=== PATIENT | male | born 1965 | race Caucasian/White ===

== ENCOUNTER 2020-02-02 08:00 | Day surgery (SDC) | payer BC ==
[~2020-02-02] VITALS: Ht 185.4 cm; Wt 185.0 kg
[~2020-02-02 08:00] MED LIST: AMOXICILLIN500 MG PO; ANAPROX DS550 MG PO; AZITHROMYCIN250 MG PO; CELEXA40 MG PO; CLINDAMYCIN HC300 MG PO; FLOMAX0.4 MG PO; HYDROCODON-ACE1 EAC8 PO; MOTRIN800 MG PO; NEURONTIN300 MG PO; NORCO 10-325 T1 EACH PO; PROVENTIL HFA6.7 GM INH; SUPHEDRIN 12-H120 MG PO; TRAMADOL HCL50 MG PO; VITAMIN D250000 UNIT PO
--- NOTE | 2020-02-02 10:26 | NUR ---
02/02/20 1026 Sheets,[place] 1019 PT ARRIVED TO PACU ON 10L VIA MASK, VSS. PT TALKING TO RN AND RESP EVEN AND UNLABORED. 1025 O2 REMOVED PT ENCOURAGED TO PASS GAS.
--- NOTE | 2020-02-02 14:12 | OR ---
[facility] [address] [place], [place] [address] Signed DATE OF OPERATION: 02/02/2020 SURGEON: Maurice Napier MD PREOPERATIVE DIAGNOSES: 1. Screening. 2. Body mass index (50). POSTOPERATIVE DIAGNOSES: 1. 5 mm polyp at 30 cm. 2. 4 mm polyps x5 at 15 cm/rectum. 3. Minimal to moderate sigmoid diverticulosis. PROCEDURE: Colonoscopy with hot biopsy. ESTIMATED BLOOD LOSS: None. INDICATIONS: Gerald is a 55-year-old gentleman, asked to see me for his initial screening colonoscopy. He said 2 guaiac cards have been negative. His has been through colonoscopy, so they are somewhat familiar with this process. He said he has no lower GI complaints. There is no family history of colon cancer or polyps. In the office, I gave him a pamphlet on colonoscopy. We looked at that together along with the risks including, but not limited to gas bloating, crampy abdominal pain, bleeding, perforation requiring surgery, and missed diagnosis. We also discussed the need for IV conscious sedation. Given his body habitus, we definitely needed an anesthesia provider to help with increased monitoring and sedation with propofol. He had expressed understanding and wished to proceed. DESCRIPTION OF PROCEDURE: Gerald was taken into our endoscopy suite and placed in the left lateral decubitus position. He was given IV sedation with propofol per our nurse gin feeder. A digital rectal exam was performed and this was unremarkable. The adult colonoscope was introduced and advanced under direct visualization of camera. It took two people to provide abdominal compression and some additional propofol in order to get all the way around the hepatic flexure and down into the cecum itself. His prep fortunately was good. We could easily see the appendiceal orifice and the ileocecal valve. The scope was slowly withdrawn. We did find a polyp at 30 cm and several small polyps in his Electronically Signed By: MAURICE NAPIER MD 02/02/20 1412 PATIENT NAME: GERALD MERCEDES OPERATIVE REPORT DATE OF : 61 REPORT #: [id number] PHYSICIAN: MAURICE NAPIER MD PCP: CEDRICK ESCOBAR PA-C REPORT IS CONFIDENTIAL AND NOT TO BE RELEASED WITHOUT AUTHORIZATION [facility] [address] [place] [id number] Signed upper rectum, all easily removed with the help of hot biopsy forceps. He also has sigmoid diverticulosis. They were moderate in size, minimal to moderate in number, and scattered about. The scope was then retroflexed. We did not see any additional pathology above the anal canal. After this, the gas was suctioned out and the colonoscope removed. Gerald tolerated the procedure quite well. RECOMMENDATIONS: I will see Gerald back in my office in 7 to 14 days to review his results. Maurice Napier MD ALB/MODL /[id number] cc: HUNTER Jimenez MD Copies: CEDRICK ESCOBAR PA-C, ANDREW L MD ~ Electronically Signed By: MAURICE NAPIER MD 02/02/20 1412 PATIENT NAME: GERALD MERCEDES OPERATIVE REPORT DATE OF : 61 REPORT #: [id number] PHYSICIAN: MAURICE NAPIER MD PCP: CEDRICK ESCOBAR PA-C REPORT IS CONFIDENTIAL AND NOT TO BE RELEASED WITHOUT AUTHORIZATION
--- NOTE | 2020-02-07 09:43 | PATH ---
[facility] [address] [place], [place] [address] Signed SPECIMEN(S): A COLON POLYP AT 15 CM SPECIMEN(S): B COLON POLYP AT 30 CM SPECIMEN SOURCE: A. COLON POLYP AT 15 CM B. COLON POLYP AT 30 CM CLINICAL HISTORY: BMI 55, colon screening. MICROSCOPIC DESCRIPTION: Histologic sections of all submitted blocks are examined by light microscopy. These findings, together with the gross examination, support the pathologic diagnosis. FINAL PATHOLOGIC DIAGNOSIS: A. Colon, 15 cm, polypectomy: - Hyperplastic polyps (multiple). - One colonic fragment demonstrates marked cautery artifact, but also contains a benign intramucosal lymphoid nodule. - There is no evidence of dysplasia or malignancy. B. Colon, 30 cm, polypectomy: - Benign colonic mucosa with prominent intramucosal lymphoid aggregate. - No evidence of neoplasia. K:[facility]:C2NR GROSS DESCRIPTION: Two specimens are received in two containers, labeled "Gerald Mercedes." A. The specimen, labeled "Mark Gerald, #1," and designated on the requisition "colon polyp at 15 cm," is received in formalin and consists of seven roberts soft tissue fragment(s) that measure 0.3-0.5 cm in greatest dimension. The specimen is entirely submitted in cassette (A1). B. The specimen, labeled "Gerald Mercedes, #2," and designated on the requisition "colon polyp at 30 cm," is received in formalin and consists of one roberts soft tissue fragment that measures 0.4 cm in greatest dimension. The specimen is entirely submitted in cassette (B1). FB (under the direct supervision of a pathologist) The Gross Description was prepared using a voice recognition system. The report was reviewed for accuracy; however, sound-alike word errors, addition and/or deletions may occur. If there is any question about this report, please contact Client Services. PATIENT NAME: GERALD MERCEDES PATHOLOGY DATE OF : 61 REPORT #: [id number] PHYSICIAN: CAMERON LOCKE PCP: CEDRICK ESCOBAR PA-C REPORT IS CONFIDENTIAL AND NOT TO BE RELEASED WITHOUT AUTHORIZATION [facility] [address] [place] [address] [place], [place] [address] Signed PERFORMING LABORATORY: The technical component was performed by [facility], [address] [place] [address] (Wheat Farmer: Maritza Wilson MD; CLIA# [id number]). Professional interpretation was performed by [facility], [address] [place] [address] (Wheat Farmer: Maritza Wilson MD; CLIA# [id number]). Diagnostician: Gopal Fountain MD Pathologist Electronically Signed 02/07/2020 Copies: ~ PATIENT NAME: GERALD MERCEDES PATHOLOGY DATE OF : 61 REPORT #: [id number] PHYSICIAN: CAMERON PATHOLOGY PCP: CEDRICK ESCOBAR PA-C REPORT IS CONFIDENTIAL AND NOT TO BE RELEASED WITHOUT AUTHORIZATION
== END 2020-02-02 10:49 | disposition home or self-care (01) ==
LOC: DS 08:00 → OPS 08:00 → DS 08:30 → OPS 08:30
PROVIDERS: ATTEND Colon & Rectal Surgery
PROC: 0DBE8ZX Excision of Large Intestine, Via Natural or Artificial Opening Endoscopic, Diagnostic (ICD-10-PCS; principal; 2020-02-02 08:30)
DX: Z12.11 Encounter for screening for malignant neoplasm of colon (principal); K63.5 Polyp of colon; K57.30 Diverticulosis of large intestine without perforation or abscess without bleeding; E66.01 Morbid (severe) obesity due to excess calories; F32.9 Major depressive disorder, single episode, unspecified; M17.0 Bilateral primary osteoarthritis of knee; E55.9 Vitamin D deficiency, unspecified; Z98.84 Bariatric surgery status; Z79.899 Other long term (current) drug therapy; Z68.43 Body mass index [BMI] 50.0-59.9, adult; G47.33 Obstructive sleep apnea (adult) (pediatric)
CPT/HCPCS: J2704; J7121

== ENCOUNTER 2021-02-13 08:13 | Inpatient (IN) | payer BC ==
[~2021-02-13] VITALS: Ht 185.4 cm; Wt 184.6 kg
--- NOTE | ~2021-02-13 | HP ---
[facility] [address] [place], [place] [address] Draft ADMISSION DATE: 02/13/2021 REASON FOR ADMISSION: Acute calculous cholecystitis. HISTORY OF PRESENT ILLNESS: This morbidly obese, 184.61 kg, BMI 53.7, white man presented to [facility] with complaints of severe epigastric pain. He was referred to the emergency room where he was evaluated by Dr. Lopez. Evaluation initially was concerning for possible cardiac ischemia. However, further evaluation shows him to have a normal troponin level and EKG unchanged from recent cardiac evaluation and pain dominantly in the epigastric and subcostal area. A gallbladder ultrasound was performed which showed some thickened gallbladder wall, some pericholecystic inflammation and gallstones. He is considered most likely to have acute calculous cholecystitis. Clemente sign was positive on that study as well it is noted. The patient has been preparing for a hip replacement operation at [facility] and has undergone a recent stress test as well as a transthoracic echocardiogram (February 06, 2021). He was noted on EKG to have a right bundle-branch block. He has mild left ventricular size, increase in ejection fraction considered 60% with normal left ventricular systolic function and without regional wall motion abnormalities. He has a mildly enlarged left atrium and right atrium and mild pulmonary hypertension (37.1 mmHg). His stress test that was performed at [facility] on February 03, 2021 under the direction of Dr. Alvarado was reviewed showing that pharmacological stress testing showed no symptoms during the stress test. Blood pressure demonstrating a hypertensive response and heart rate demonstrating normal response to stress. Recovery heart rate was normal. He had rare PACs and no dysrhythmias during the test. PAST MEDICAL HISTORY: Notable for gastric bypass operation in 2005. He had no known complications of operation at that time. He additionally has ongoing obesity and a history of nephrolithiasis. SOCIAL HISTORY: He is . He works for [employer]. He lives in [place]. He has no children. HOME MEDICATIONS: Include albuterol, Proventil inhaler as needed for shortness of breath. Additional medicines include Buspirone 5 mg p.o. daily, testosterone 200 mcg IM and citalopram PATIENT NAME: GERALD MERCEDES HISTORY AND PHYSICAL DATE OF : 61 REPORT #: [id number] PHYSICIAN: TRISTAN ABRAHAM MD PCP: CEDRICK ESCOBAR PA-C REPORT IS CONFIDENTIAL AND NOT TO BE RELEASED WITHOUT AUTHORIZATION [facility] [address] [place], [place] [address] Draft (Celexa 40 mg daily). REVIEW OF SYSTEMS: He denies any actual precordial chest pain or left arm pain under my questioning. His pain is severe and in the right subcostal and epigastric area. PHYSICAL EXAMINATION: GENERAL: He is accompanied by his . VITAL SIGNS: Presentation vital signs at 8:00 a.m. showed temperature of 97, pulse 69, respirations 13, blood pressure 154/101, pulse oximetry 97%. NECK: Trachea is midline. CHEST: Shows shallow breathing. He is not diaphoretic. ABDOMEN: Quite markedly obese. There is significant tenderness and peritonitis in the epigastric and right subcostal areas. I detect no mass. EXTREMITIES: Show no clubbing, cyanosis, or edema. EKG does confirm right bundle-branch block. LABORATORY STUDIES: Show a white count of 5.3, hematocrit of 41.8, platelets 336,000. Chem profile normal electrolytes, creatinine 0.96. Liver enzymes are normal. Troponin highly sensitive was 11.9. Lipase is 136. Imaging study was reviewed personally and report also reviewed confirming at least one large shadowing gallstone and a somewhat distended gallbladder. The report is reviewed confirming a 17 mm stone in the neck with hydropic gallbladder. Plain chest x-ray shows clear lung klein bilaterally. Official report shows no acute pathology. ASSESSMENT: The patient clinically and radiographically has evidence of acute calculous cholecystitis. We are certainly mindful of his extreme obesity and the hazards that anesthesia and surgery may pose, however, given his significant findings, I do believe cholecystectomy is appropriate at this time. Discussed with the patient and his the risks of bleeding, infection, bile duct injury, need for open procedure, and other unforeseen complications. Understanding this, they wished to proceed. Given his recent stress test and transesophageal echocardiogram, his cardiac situation is somewhat better characterized and does appear to have well-preserved ventricular function despite a noted right bundle-branch block. PATIENT NAME: GERALD MERCEDES HISTORY AND PHYSICAL DATE OF : 61 REPORT #: [id number] PHYSICIAN: TRISTAN ABRAHAM MD PCP: CEDRICK ESCOBAR PA-C REPORT IS CONFIDENTIAL AND NOT TO BE RELEASED WITHOUT AUTHORIZATION [facility] [address] [place], [place] [address] Draft He is to be started promptly on Ancef 3 g IV and additional fluids administered. We will plan for a prompt cholecystectomy today in hopes of relieving his suffering and definitively solving this problem. MD WHITNEY Cabezas/SOCORRO /[id number] cc: HUNTER Jimenez Dr[address] [facility] Copies: CEDRICK ESCOBAR PA-C ~ PATIENT NAME: GERALD MERCEDES HISTORY AND PHYSICAL DATE OF : 61 REPORT #: [id number] PHYSICIAN: TRISTAN ABRAHAM MD PCP: CEDRICK ESCOBAR PA-C REPORT IS CONFIDENTIAL AND NOT TO BE RELEASED WITHOUT AUTHORIZATION
--- NOTE | ~2021-02-13 | OR ---
[facility] [address], [place] [address] Draft DATE OF OPERATION: 02/13/2021 SURGEON: Tristan Abraham MD PREOPERATIVE DIAGNOSES: 1. Acute calculous cholecystitis, hydropic gallbladder, single gallstone 17 mm. 2. Morbid obesity (greater than 400 pounds). 3. History of gastric bypass, 2002. POSTOPERATIVE DIAGNOSES: 1. Perforated ulcer, gastrojejunal anastomosis with generalized peritonitis. 2. Hydropic gallbladder with stone. PROCEDURES: 1. Laparoscopy with attempted closure and patch (Ruben patch) perforated ulcer, conversion to open laparotomy and Ruben patch repair of perforated gastrojejunal anastomotic ulcer, prolonged complicated difficult. 2. Open cholecystectomy without cholangiogram and placement of drain. ANESTHESIA: General endotracheal, Shira Henry, TENT FINISHER, and subcostal bilateral TAP blocks. INDICATION: This 56-year-old white man presented to the emergency room with severe epigastric pain. Initially thought possibly a cardiac problem. He is morbidly obese, in greater than 400 pounds, so he did undergo gastric bypass operation in 2002. He is known to have chronic abdominal pain. Notably, he has undergone a stress test in the past two weeks in preparation for hip surgery to be done at [facility] as well as a transesophageal echo showing preservation of left ventricular function greater than 60%. A gallbladder ultrasound was performed, which showed a hydropic gallbladder and a single gallstone of 17 mm. A preoperative chest x-ray showed no sign of infiltrate. Noted (but not documented by me or the radiologist, was a very small sliver of air in the right medial hemidiaphragm area, which was of uncertain significance. The patient is prepared for laparoscopic cholecystectomy, possible open procedure depending on finding, as well as other indicated procedures as necessary. The risks of bleeding, infection, bile duct injury, need for open procedure and so forth were reviewed with the patient and his . They understand and wished to proceed. FINDINGS: PATIENT NAME: GERALD MERCEDES OPERATIVE REPORT DATE OF : 61 REPORT #: [id number] PHYSICIAN: TRISTAN ABRAHAM MD PCP: CEDRICK ESCOBAR PA-C REPORT IS CONFIDENTIAL AND NOT TO BE RELEASED WITHOUT AUTHORIZATION [facility] [address], [place] [address] Draft Upon entry to the abdomen through the infraumbilical incision was egress of free air. Turbid fluid was noted as well. Quite clearly, the problem would not have been acute cholecystitis and upon reflection was concordant to his more than average severe abdominal pain related to presumed cholecystitis. With laparoscopic evaluation, there was no evidence of perforated duodenal ulcer, but there was a distended hydropic gallbladder. Examination to the left of the falciform ligament demonstrated a fibrinous purulent exudate near the lateral aspect of the left lateral segment of the liver and with careful manipulation, an obvious perforation in what would be the gastrojejunal anastomotic limb. Attempts to repair this laparoscopically were unsuccessful and conversion open operation was undertaken, allowing for complete repair with a Ruben patch. Additionally, open cholecystectomy without cholangiogram was performed. The patient has been fluid resuscitated in the emergency room and given Ancef 3 g IV preoperatively. He has been given a general endotracheal anesthetic. A Coelho catheter was placed. The very large abdominal area was clipped and prepared with a chlorhexidine solution and draped sterilely. An infraumbilical incision was made and using an open Robe cannula technique, the abdomen was entered. Upon entry to the abdomen, egress of free air was noted as well as turbid somewhat bile-stained fluid. Of course, this portended the finding in fact of perforated viscus of some sort. I thought likely it would be a perforated duodenal ulcer. Three additional trocars were placed in usual configuration in the subxiphoid, right midclavicular, and right anterior axillary line. Examination in the upper abdomen showed turbid infected fluid over the dome of the liver quite clearly not consistent with acute cholecystitis. The gallbladder was very hydropic and distended and inflamed. Attempts in identification of the bulbar duodenum were quite unsuccessful due to the distention of the gallbladder and omental adhesions. On that basis, the gallbladder was decompressed of its relatively normal-appearing bilious fluid. The puncture site was secured with an Endoloop and the gallbladder elevated cephalad. Due to his massive intra-abdominal obesity and so forth, a good visualization of the duodenum was difficult to obtain. Additional trocars showing no sign of inflammatory fluid in the region of the pylorus or area of the duodenum. Examination in the lower abdomen was undertaken showing inflammatory fluid there. Two right lower quadrant 5 mm ports were placed to allow for manipulation of the cecum to assess the appendix. The teniae were followed to the base of the appendix, but the appendix was not visible and was either retroperitoneal or perhaps previously excised ; in any case, there was no evidence of retroperitoneal process and this would be an unlikely source of the inflammatory fluid and free air. Examination was then undertaken in the upper abdomen once again. Manipulation of the PATIENT NAME: GERALD MERCEDES OPERATIVE REPORT DATE OF : 61 REPORT #: [id number] PHYSICIAN: TRISTAN ABRAHAM MD PCP: CEDRICK ESCOBAR PA-C REPORT IS CONFIDENTIAL AND NOT TO BE RELEASED WITHOUT AUTHORIZATION [facility] [address], [place] [address] Draft trocars that was to the right side of the falciform ligament were withdrawn and reapplied to the left side of the falciform and in the left upper quadrant quite clearly noted was inflammatory peel and rind in the tip of the left lateral segment of the liver. Two additional trocars were placed in the left upper quadrant allowing for focus to this area. Quite obviously there was found to be a perforated ulcer. This appeared to be along the staple line of the presumed gastrojejunal anastomosis. The area was freed of inflammatory fluid and fibrinous debris using blunt electrocautery dissection the left lateral segment of liver from the process. The left lateral segment of liver was chronically inflamed enough that it could be all gently grasped and elevated. Attempts were made to pass laparoscopically, an 0 silk suture through the perforation to provide closure and/or a Ruben patch for closure, but the tissue was so friable and soft that the sutures tore through very easily and quite obviously this would not be a tenable approach. On that basis, given that still the need for a cholecystectomy, open procedure was deemed most appropriate. The trocars removed under direct visualization showing no sign of bleeding. The infraumbilical fascial incision was reapproximated with running rather interrupted 0 PDS suture. A midline incision was made extending from the xiphoid to the umbilicus, but not through it. The thick abdominal wall pannus was retracted and examination of the abdomen showed clear evidence of the perforation of the gastrojejunal anastomosis. The ulcer was larger than I had anticipated and quite unlikely had been extended by manipulation simply was large and high-riding as might be expected. An upper hand retractor was affixed to the table, was found to be too short and inappropriate for his body habitus. On that basis, a Bookwalter retractor with recruiting associate was obtained providing quite good exposure to the upper subhepatic space on the left side. The area of the ulcer was defined more fully and was certainly greater than a centimeter in size more likely two. Marked inflammation of the surrounding bowel was noted. An orogastric tube was manipulated into position, but was not palpated. This was anticipating leak testing after repair. The size of the suture and the friability of the tissue was such that simple closure would be an adequate. On that basis, a segment of omentum was freed from the stomach remnant, which was generous and well-vascularized. Interrupted 0 silk sutures were on each side of the perforation in a vertical position and the omental patch placed within the defect quite directly securing the sutures over the omentum into the defect itself. PATIENT NAME: GERALD MERCEDES OPERATIVE REPORT DATE OF : 61 REPORT #: [id number] PHYSICIAN: TRISTAN ABRAHAM MD PCP: CEDRICK ESCOBAR PA-C REPORT IS CONFIDENTIAL AND NOT TO BE RELEASED WITHOUT AUTHORIZATION [address] [address] Draft the mixer crane operator was then able to insufflate the area with air with the area in question submerged beneath saline. Several such trials were undertaken showing no sign of leakage. Through a left-sided 5 mm trocar site, a 7 mm flat J Luis drain was placed into the area of Ruben patch and irrigation undertaken more fully. Mindful of the gallbladder was hydropic and did have a stone, cholecystectomy was deemed appropriate as well. The Bookwalter retractor was manipulated to a different position, ultimately providing good exposure to the gallbladder itself. The gallbladder was still quite distended. A 2-0 silk suture was passed in a pursestring configuration. The gallbladder entered with electrocautery and much of the bile from the gallbladder decompressed more fully. The puncture site was secured with a silk suture. A ring clamp was applied to the gallbladder. The gallbladder was dissected free in a top-down position down to the infundibulum. As it turns out, the cystic duct was diminutive, quite small, indeed, but was secured with three clips. The gallbladder was passed for pathology and showed some neoplasm of mucosa, but 17 mm stone as previously noted. Irrigation was undertaken in subhepatic space. There was no bile leak, bleeding, or other problems. The right-sided 5 mm trocar site, 7 mm flat drain was placed in the subhepatic space as well. The entire abdominal contents were then copiously irrigated with saline solution, suctioning free the turbid fluid from the perforated viscus. There was no evidence of solid matter within the peritoneal cavity. The omentum was replaced of the abdominal contents and plan made for closure. The midline fascia was reapproximated with running bidirectional #1 PDS suture with interrupted #1 PDS suture for internal retention sutures. Five of six such sutures were placed. The subcutaneous tissue, the umbilical wound, and the epigastric wound was irrigated with saline solution and skin closed in all wounds with running 3-0 Vicryl or interrupted 3-0 Vicryl as appropriate. Steri-Strips were applied as was an Acticoat dressing to the midline incision site. The patient was ultimately given a subcostal TAP blocks with ultrasound control by the mixer crane operator for postoperative analgesic benefit. He was ultimately taken to recovery room in good condition having suffered no known complications. Sponge, needle, and instrument counts were reported as correct x3. Blood losswas estimated less than 50 mL in aggregate. The operation was prolonged, complicated, and difficult lasting approximately 4 hours in aggregate, but was accomplished safely with good clinical benefit. PATIENT NAME: GERALD MERCEDES DAVID OPERATIVE REPORT DATE OF : 61 REPORT #: [id number] PHYSICIAN: TRISTAN ABRAHAM MD PCP: CEDRICK ESCOBAR PA-C REPORT IS CONFIDENTIAL AND NOT TO BE RELEASED WITHOUT AUTHORIZATION [address] [address] Draft MD WHITNEY Cabezas/SRINIVASL /[id number] cc: HUNTER Jimenez MD John Elliott, MD Copies: CEDRICK ESCOBAR PA-C, CYNTHIA SUE MD ~ PATIENT NAME: GERALD MERCEDES OPERATIVE REPORT DATE OF : 61 REPORT #: [id number] PHYSICIAN: TRISTAN ABRAHAM MD PCP: CEDRICK ESCOBAR PA-C REPORT IS CONFIDENTIAL AND NOT TO BE RELEASED WITHOUT AUTHORIZATION
--- NOTE | ~2021-02-13 | DS ---
[facility] [address], [place] [address] Draft ADMISSION DATE: 02/13/2021 DISCHARGE DATE: 02/19/2021 REASON FOR ADMISSION: This morbidly obese 184.61 kg, BMI 53.7 white man presented to [facility] with severe epigastric pain. He is referred to the emergency room where he was evaluated by Dr. Lopez. His initial concern was that of cardiac disease, but there was no evidence of ischemic disease and a recent cardiac evaluation including a stress thallium test and others showed no evidence of ischemic change. A gallbladder ultrasound was performed which showed thickened gallbladder wall, some pericholecystic inflammation and gallstones. He is considered most likely to have calculous cholecystitis. The patient has been preparing for hip replacement surgery at [facility] in March. He is noted to have a right bundle-branch block, mild left ventricular increase in size and ejection fraction of 60%. The patient has had a very diseased knees anticipating orthopedic operation as described; he has been taking Motrin at least 800 mg b.i.d. as well as aspirin mg daily for control of the pain. Pertinent. PERTINENT PHYSICAL EXAMINATION: GENERAL: On admission showed a very obese white man. VITAL SIGNS: Blood pressure 154/100, pulse oximetry 97% on room air, pulse 69, temperature 97, respirations 13. ABDOMEN: Showed significant tenderness and peritonitis in the epigastric and right subcostal areas. There was no mass. LABORATORY STUDIES: Showed a white count of only 5.9, hematocrit 41.8, platelets 336,000. Troponin highly sensitive 11.9. Lipase 136. Gallbladder ultrasound showed a distended hydropic gallbladder with a large shadowing stone. HOSPITAL COURSE: The patient was given intravenous fluid resuscitation, IV antibiotic Ancef, and plans made for proceeding directly to cholecystectomy given the severity of his symptoms, tenderness and so. On that day on February 13, 2021 he underwent laparoscopy where he was immediately noted to have egress of free air from the abdominal cavity. Laparoscopic evaluation showed generalized peritonitis and peritoneal contamination likely from perforated viscus. The gallbladder was clearly distended and inflamed as well. Decompression of the PATIENT NAME: GERALD MERCEDES DISCHARGE SUMMARY DATE OF : 61 REPORT #: [id number] PHYSICIAN: TRISTAN ABRAHAM MD PCP: CEDRICK ESCOBAR PA-C REPORT IS CONFIDENTIAL AND NOT TO BE RELEASED WITHOUT AUTHORIZATION [facility] [address], [place] [address] Draft gallbladder allowed for good visualization of the duodenum, which showed no evidence of perforated duodenal ulcer. Examination to the left of the falciform ligament, however, did show inflammatory changes and a gummy area of tissue near the left lateral segment of liver clearly related to previous gastrojejunal bypass and an obvious perforated ulcer. Attempts at patch closure with a Ruben patch of the perforate also were unsuccessful and on that basis, he was converted to an upper midline laparotomy incision. Repair of the perforated ulcer was undertaken with a Ruben patch (classic type) and placement of drain. He also underwent concurrent cholecystectomy for incidentally noted acute calculous cholecystitis. Postoperatively, he is maintained with a nasogastric tube and a drain near the repaired area as well as the subcostal space. He had marked improvement of his peritoneal findings. He is maintained without nonsteroidal medication for pain control. His progress thereafter was one of progressive improvement. He was maintained with orally administered liquid sucralfate as well as intravenous PPI medication, Protonix and intravenous Pepcid. The nasogastric gastric tube was removed as it was showing only scant drainage and neither the drain showed ongoing leak of inflammatory fluid. He was given some clear liquids in minimal amounts for comfort and ultimately underwent an upper GI on February 17, 2021 which showed no evidence of persistent leakage in the region of prior gastrojejunal anastomosis. He was then begun on a full liquid diet which was promptly advanced to a solid diet without problem. He was transitioned to oral medications fully and ultimately the drains were removed as they showed no worrisome discharge and he was mobilized out of bed more fully. Upon retrospect assessment, he had been taking Motrin 800 mg at least twice a day as well as minidose aspirin on a daily basis (related to his testosterone replacement therapy). He is discharged home in good condition having come through operation, which included repair of a perforated gastric ulcer at the gastrojejunal anastomosis with prior history of Chase-en-Y gastric bypass as well as cholecystectomy. FOLLOW-UP PLANS: He will call me in a week to schedule outpatient followup appointment in four weeks or so. He ultimately will undergo upper endoscopy to assess for complete healing. He has not been a smoker nor he endeavor to start such a habit and will avoid nonsteroidal medications entirely going forward for the time being. I have encouraged him to follow through with orthopedic surgery planned on his knees in March as I think he will be certainly capable of tolerating that at that point. PATIENT NAME: GERALD MERCEDES DISCHARGE SUMMARY DATE OF : 61 REPORT #: [id number] PHYSICIAN: TRISTAN ABRAHAM MD PCP: CEDRICK ESCOBAR PA-C REPORT IS CONFIDENTIAL AND NOT TO BE RELEASED WITHOUT AUTHORIZATION [address] [place], [place] [address] Draft He is to lift no more than 20 pounds for the next 4 weeks and is to ambulate on a daily basis. DISCHARGE MEDICATIONS: Will include: 1. Oxycodone/Tylenol 7.5/325 1-2 p.o. q.6 hours as needed for pain #10, no refill. 2. Plain Tylenol 500 mg two tablets p.o. q.6 hours as needed for pain, #60. 3. Sucralfate 1 g dissolved in water or hold depending on the patient preference q.i.d. on empty stomach. 4. Pantoprazole 40 mg p.o. b.i.d. #60, refill 6. 5. He will continue his usual medications of Celexa 1 tab p.o. daily, albuterol inhaler 6.7 g inhaler 1-2 puffs q.6 as needed for shortness of breath. 6. Buspirone 5 mg p.o. b.i.d. and testosterone mL IM q.month. DISCHARGE DIAGNOSES: 1. Generalized peritonitis secondary to perforated gastric ulcer at site of prior gastrojejunal anastomosis (history of gastric bypass 2002). 2. Concurrent acute calculous cholecystitis. 3. Status post laparoscopy with conversion to open operation to include Ruben patch repair of perforated gastrojejunal anastomotic ulcer and open cholecystectomy without cholangiogram. 4. Morbid obesity. BMI greater than 53. 5. History of Chase-en-Y gastric bypass in 2002. 6. Hypogonadism (treated with testosterone). 7. Severe degenerative disease of knees, anticipating orthopedic surgery; current and precipitating medications of Motrin. 8. Anxiety. Tristan Estevan, MD JM/MODL /[id number] cc: Tina Romero MD PATIENT NAME: GERALD MERCEDES DISCHARGE SUMMARY DATE OF : 61 REPORT #: [id number] PHYSICIAN: TRISTAN ABRAHAM MD PCP: CEDRICK ESCOBAR PA-C REPORT IS CONFIDENTIAL AND NOT TO BE RELEASED WITHOUT AUTHORIZATION [address] [address] [facility] Dr. Lopez Copies: TINA ROMERO MD ~ PATIENT NAME: DARENGERALD DAVID DISCHARGE SUMMARY DATE OF : 61 REPORT #: [id number] PHYSICIAN: TRISTAN ABRAHAM MD PCP: CEDRICK ESCOBAR PA-C REPORT IS CONFIDENTIAL AND NOT TO BE RELEASED WITHOUT AUTHORIZATION
[2021-02-13] MEDS ORDERED: BUSPIRONE HCL5 MG PO (08:31)
[2021-02-13] MEDS ORDERED: TESTOSTERO200 MG/1 M IM (08:32)
--- NOTE | 2021-02-13 11:36 | NUR ---
REPORT RECEIVED FROM GERA JUNIOR, WHO STATES PT IS SCHEDULED TO GO TO OR PRIOR TO ARIVAL TO MED/SURG. AWAITING PTS ARRIVAL TO MED/SURG.
[2021-02-13] MEDS ORDERED: GABAPENTIN300 MG PO (12:15)
--- NOTE | 2021-02-13 14:29 | NUR ---
REPORT GIVEN TO GERA PETIT WHO WILL BE ASSUMING CARE OF PT. AWAITING PTS ARRIVAL TO MED/SURG.
--- NOTE | 2021-02-13 16:11 | NUR ---
02/13/21 1611 Jayne Dela Cruz 1605- PT ARRIVES TO PACU EASILY AROUSABLE TO VOICE. PT REPORTS NO PAIN OR NAUSEA. RESP EVEN AND UNLABORED. OXYGEN SAT MID TO HIGH 90'S ON 6L VIA MASK. 1608- DR. ABRAHAM AT THE BEDSIDE TO TALK WITH THE PT.
--- NOTE | 2021-02-13 17:50 | NUR ---
REPORT RECEIVED AND PT. ARRIVED VIA STRETCHER ON 2L OXYMASK. MIDLINE DRESSING HAS SMALL AMOUNT OF RED SHADOWING BUT IS INTACT. YAMILET DRAINS PATENT. RLQ LAP SITE DRESSINGS HAVE A SMALL AMOUNT OF SHADOWING. PT REPORTS 8/10 LEFT SHOULDER PAIN THAT IS CHRONIC. MORPHINE ADMIN AND HEAT PACK. HE IS ALERT AND ORIENTED TO ALL. IV SITE WNL AND FLUSHES WELL. NG TUBE ATTACHED TO LOW INT. WALL SUCTION AND DRAINING RED/BROWN FLUID. DISCUSSED SAFETY, MEDS AND NG TUBE. PT. LEFT RESTING ON CPOX, ALARM ON AND CALL LIGHT IN REACH.
--- NOTE | 2021-02-13 19:25 | NUR ---
SHIFT REPORT RECEIVED FROM DAYSHIFT RN MARISABEL AT BEDSIDE. pt DROWSY, BUT AWOKE TO VOICE. 4L OXYMASK IN PLACE, SPO2 LOW 90'S, CPOX IN PLACE. HR WNL. LAP SITES X2 AND MIDLINE DRESSING WNL WITH ABD BINDER IN PLACE. NG TUBE TO LOW INT. WALL SUCTION, OUTPUT BROWN IN COLOR. IV FLUIDS AND IV ABX INFUSING ORDERED, IV SITE WNL. SCD'S IN PLACE. pt DENIES NEEDS, CALL LIGHT IN REACH.
--- NOTE | 2021-02-13 20:30 | NUR ---
POST OP VS REMAIN STABLE. pt RESTING IN BED, RR EVEN AND UNLABORED. NO DISTRESS NOTED. pt DENIES NEEDS OR CONCERNS. CALL LIGHT IN REACH.
--- NOTE | 2021-02-13 21:30 | NUR ---
IN TO GET VITALS, I&Os, HANSEN CARE DONE, RN AWARE OF PTs TEMP, RM TEMP TURNED DOWN, NO FURTHER NEEDS
--- NOTE | 2021-02-13 22:45 | NUR ---
ASSESSMENT COMPLETE, pt INITIALLY REPORTS PAIN IS TOLERABLE, RATES APPROX 5/10. DENEIS NAUSEA. NG TUBE TO LIWS, NOW CLAMPED TO TAKE ORAL MEDS (SEE EMAR). NG TUBE PATENT, NO CLOGS OR ISSUES NOTED. OUTPUT RED/RUST, BROWN IN COLOR. MOUTH SWABS REMAIN AT BEDSIDE FOR COMFORT. LAP SITES X2 WNL, UNCHANGED. 20MLS SEROSANGUINEOUS OUTPUT NOTED TO BOTH YAMILET DRAIN #1 AND YAMILET DRAIN #2. pt STOOD AND EDGE OF BED AND TOOK COUPLE STEPS, DENIED DIZZINESS, STEADY ON FEET. ABD BINDER REMAINS IN PLACE. SOME NEW SHADOWING NOTED TO MIDLINE DRESSING, SHADOWING NOW OUTLINED, WILL MONITOR. pt BACK IN BED, HOB ELEVATED. pt TITRATED TO 3L OXYMASK, CPOX REMAINS IN PLACE. IV FLUIDS INFUSING DIRECTED, IV SITE WNL.
--- NOTE | 2021-02-13 23:30 | NUR ---
DR ABRAHAM AT RN STATION, AND UPDATED ON NG OUTPUT AMOUNT <100MLS AND COLOR. ALSO MADE AWARE OF INCREASED SHADOWING TO MIDLINE DRESSING AFTER STANDING ON EDGE OF BED, NO NEW ORDERS RECEIVED AT THIS TIME.
--- NOTE | 2021-02-13 23:40 | NUR ---
PRN MORPHINE GIVEN FOR 7/10 PAIN IN LEFT SHOULDER AND ABD, SEE EMAR. pt REMAISN ON CPOX, 3LOXYMASK IN PLACE. RR EVEN AND UNLABORED. CALL LIGHT IN REACH.
--- NOTE | 2021-02-14 00:05 | NUR ---
pt's NG TUBE RECONNECTED TO LIWS, NG TUBE PATENT WITH NO KINKS IN TUBING OR CLOGS NOTED. pt REPORTS PAIN IMPROVED, DOES NOT RATE AT THIS TIME. IV SITE WNL, FLUIDS INFUSING DIRECTED. NO FURTHER NEEDS, CALL LIGHT IN REACH.
--- NOTE | 2021-02-14 02:00 | NUR ---
AT APPROX THIS TIME: DISCUSSED WITH RESIDENT CARE ASSISTANT CLAU REGARDING NEED FOR CHEST XRAY FOR NG TUBE LOCATION CONFIRMATION. pt HAS ONLY HAD NG TUBE TO SUCTION AT THIS TIME, NG TUBE ALREADY IN PLACE AND TO LIWS BEFORE THIS SHIFT. PER RESIDENT CARE ASSISTANT, PLACE PROTOCOL FOR CHEST X-RAY IN AM.
--- NOTE | 2021-02-14 03:02 | NUR ---
SCHEDULED IV ABX INFUSING DIRECTED. IV SITE WNL. PRN TYLENOL GIVEN FOR 5/10 PAIN R/T HEADACHE. NO NEW SHADOWING NOTED TO MIDLINE DRESSING, YAMILET DRAINS EMPTIED, OUTPUT REMAINS SEROSANGUINEOUS IN COLOR. pt DENIES NAUSEA, BOWEL TONES HYPOACTIVE TO ACTIVE. SCD'S IN PLACE. NEW ADHESIVE TO NOSE FOR NG TUBE. NG TUBE REMAINS PATENT, NO CHANGE TO PUTPUT COLOR. REMAINS ON LIWS. CALL LIGHT IN REACH.
--- NOTE | 2021-02-14 05:30 | NUR ---
abd xr obtained, coop with labs, c/o abd, h/a and back shoulder pain, medicated with morphine 2mg IV
--- NOTE | 2021-02-14 06:00 | NUR ---
WITH HELP FROM GERA SELLERS, PH TEST STRIP DONE FROM NG TUBE CONTENTS-RESULT OF APPROX 7. DIFFICULT TO ENSURE ACCURACY D/T BLOOD IN NG TUBE, DISCUSSED WITH STORAGE BATTERY INSPECTOR AND TESTER CLAU. NG TUBE REMAINS IN PLACE, TO LIWS. PATENT, NO CLOGS NOTED. WILL MONITOR AND ADJUST PRN. pt RESTING IN BED, 2LOXYMASK IN PLACE, LOW TO MID 90'S, RR EVEN AND UNLABORED. pt DENIES SOB, DYSPNEA, CHEST PAIN.
--- NOTE | 2021-02-14 06:07 | NUR ---
SPOKE TO IMAGING REGARDING RESULTS OF CHEST X-RAY FOR NG TUBE PLACEMENT. RESULTS NOT YET VISIABLE, ORDER PLACED URGENT. AWAITING TO HEAR BACK FROM IMAGING.
--- NOTE | 2021-02-14 07:46 | NUR ---
LATE ENTRY: AT APPROX 2200 ON 02/13/21. THIS RN SPOKE TO TELEPHARMACY REGARDING ORDERS FOR BOTH IV PEPCID AND PROTONIX. PER TELEPHARMACY, OKAY TO GIVE BOTH AT THIS TIME. SUGGESTED RELAY SHOP SUPERVISOR FOLLOW UP WITH MD IN THE AM TO CLARIFY.
--- NOTE | 2021-02-14 08:30 | NUR ---
REPORT RECEIVED FROM NIGHT RN AND PT. CARE RESUMED. PT. IS DROWSY AND EASILY AWAKENS TO VOICE. ORIENTED TO ALL. HE REPORTS A SEVERE HEADACHE THAT STARTED OVERNIGHT AND UPPER ABDOMINAL PAIN. ADMIN. IV TYLENOL AND DILAUDID. MIDLINE DRESSING HAS DRIED SHADOWING THROUGHOUT BUT IS INTACT. YAMILET DRAINS PATENT AND DRAINING SERASANGUINOUS DRAINAGE. +1 EDEMA PRESENT BLE THAT PT. STATES IS NORMAL. HE IS ON 2L OXYMASK AND O2 SAT IS 92%. NG TUBE DRAINING RUST COLOR FLUID AND ATTACHED TO INTERMITTENT WALL SUCTION. DISCUSSED AMBULATION, PAIN MANAGEMENT AND POC. LEFT RESTING WITH AT BEDSIDE.
--- NOTE | 2021-02-14 10:23 | NUR ---
Spoke with Maury, states he lives in a 2 story home with his . He uses main floor only. Has 4 steps into the home which may be problematic, he is not sure and will determine when he works with PT. Pt denies financial issues, does not use DME. Plans on dc to home with when cleared medically.
--- NOTE | 2021-02-14 10:53 | NUR ---
PT. AMBULATED 1 LAP AROUND THE UNIT WITH FWW AND SBA. TOLERATED WELL. BACK TO BED WITH SCD, NG TUBE WITH INTERMITTENT SUCTION, AND IV ABX INFUSING. LEFT RESTING WITH CALL LIGHT IN REACH. HE DENIES PAIN AT THIS TIME.
--- NOTE | 2021-02-14 12:07 | NUR ---
PT RESTING IN BED. HAD SURGERY LAST NIGHT, NG TUBE IN. PT IS ALERT AND ORIENTED. PT ABLE TO JOKE, GAVE ENCOURAGEMENT AND G.POST. WILL FOLLOW
--- NOTE | 2021-02-14 14:45 | NUR ---
PT. USED CALL LIGHT APPROPRIATELY TO REQUEST PAIN MEDS. HE REPORTS 6/10 ABDOMINAL PAIN. ADMIN. DILAUDID. PT. DENIES FURTHER NEEDS. LEFT RESTING WITH AT BEDSIDE.
--- NOTE | 2021-02-14 16:30 | NUR ---
BEDSIDE REPORT RECIEVED FROM MARISABEL RN, PT HELPED UP TO THE CHAIR WITH 2A,NG IN PLACE TO LOW INTERMITTEN SUCTION 2JP DRAINS, ON ROOM AIR AT THE MOMENT, PULSE OXIMETER ON AND FUNCTION CALL LIGHT WITH IN REACH NO OTHER NEEDS AT THE MOMENT.
--- NOTE | 2021-02-14 17:21 | NUR ---
PT CALLED OUT SAYING HE IS HAVING SEVERE PAIN, 0.5MG OF PRN DILAUDID GIVEN, REMAINS UP IN CHAIR, NO OTHER NEEDS AT THE MOMENT
--- NOTE | 2021-02-14 19:25 | NUR ---
DR ABRAHAM NOTIFED OF PRELIMINARY ABD CAVITY REPORT. NOTIFIED OF BLOOD TINGED/DICKERSON SPUTUM. NO NEW ORDERS ON APPROPIATE IV ABX.
--- NOTE | 2021-02-14 19:30 | NUR ---
PATIENT RESTING UP IN CHAIR. NG-LIWS. PATIENT DENIES THE NEED FOR ANY PAIN MEDICATION AT THIS TIME. ABD DRESSINGS ARE INTACT AND NO NEW SHADOWING OUT SIDE OF THE PREVIOUS PEN MARKINGS MADE BY DENNYS RN. THIS RN RECEIVED SHIFT REPORT FROM GERA CABRERA. PATIENT HAS NO CURRENT CARE NEEDS AT THIS TIME. CALL LIGHT IS IN REACH.
--- NOTE | 2021-02-14 20:15 | NUR ---
in to get vitals, emptied quarles, quarles care complete, no further needs at this time
--- NOTE | 2021-02-14 21:30 | NUR ---
PATIENT RESTING QUIETLY IN HIS BEDSIDE ARM CHAIR. PATIENT DENIES NEEDS FOR PAIN AND NAUSEA MEDS AT THIS TIME. PATIENT WATCHING TV AND HAS NO CURRENT CARE NEEDS. CALL LIGHT IS IN REACH.
--- NOTE | 2021-02-14 22:29 | NUR ---
PATIENT'S NG CLAMPED AND SLURRIED CARAFATE GIVEN PER NG TUBE AFTER AUSCULTATING PLACE MENT WITH AIR. PATIENT DEVELOPED SOME NAUSEA AND WAS ALREADY HAVING 7/10 ABD PAIN. 8MG IV ZOFRAN GIVEN SIVP FOLLOWED BY 0.5MG IV DILAUDID SIVP. PATIENT ALREADY FELLING BETTER. WILL BE BACK TO WALK PATIENT IN A FEW MINUTES. CALL LIGHT IN REACH.
--- NOTE | 2021-02-14 23:00 | NUR ---
assisting rn with pt ambulation in hallway
--- NOTE | 2021-02-14 23:00 | NUR ---
PATIENT AMBULATED WITH FWW AND 2 PERSON STANDBY ASSIST AROUND THE MED/SURG UNIT TWICE AND TOLERATED THIS WELL. NAUSEA IS GONE AND PAIN IS DOWN TO 2/10. PATIENT INTO BED. 2L/OXYMASK APPLIED PATIENT'S SATS ARE ABOUT 89% WHEN HE IS LAYING DOWN ON ROOM AIR. 93% ON 2L/OXYMASK. ABD DRESSINGS SHOW NO NEW SHADOWONG AFTER PATIENT'S WALK AND ARE INTACT. CALL LIGHT IS IN REACH. NO OTHER CARE NEEDS AT THIS TIME.
--- NOTE | 2021-02-14 23:32 | NUR ---
PATIENT'S NG TUBE RETURNED TO [facility] AT 80. OLD NG LOCKING DEVICE STARTING TO SLIP OFF PATIENT'S NOSE. SO NOSE WAS CLEANED WITH WARM WATER, SKIN PROTECTANT APPLIED AND NO CLAMPING DEVICE IN PLACE. PATIENT STILL DENIES NAUSEA AND PAIN IS 2/10 AT THIS TIME. CALL LIGHT IN REACH, NEW ICE CHIPS GIVEN, AND LIGHTS TURNED DOWN AT PATIENT'S REQUEST. NO OTHER CARE NEEDS NOTED AT THIS TIME.
--- NOTE | 2021-02-15 01:12 | NUR ---
PATIENT RESTING QUIETLY IN LOW FOWLERS POSITION, O2 SAT 96% ON 2L/OXYMASK/ HR=88 ON MONITOR. PATIENT'S EYES ARE CLOSED, RESPIRATIONS ARE REGULAR AND EVEN, AND CALL LIGHT IS IN REACH.
--- NOTE | 2021-02-15 02:00 | NUR ---
PATIENT'S 2AM ANTIBIOTIC RUNNING. PATIENT SAID HE FELT HOT SO VS TAKEN AND RECORDED. PATIENT AFEBRILE AND VS STABLE. PATIENT DENIES NAUSEA AND DENIES NEED FOR PAIN MEDS AT THIS TIME. PATIENT'S DRESSINGS REMAIN UNCHANGED FAR ANY NEW DRAINAGE AND DRESSINGS ARE INTACT. CALL LIGHT IN REACH AND PATIENT DENIES ANY OTHER CARE NEEDS AT THIS TIME. THERMOSTAT TURNED DOWN TO 69 DEGREES AT PATIENT REQUEST.
--- NOTE | 2021-02-15 03:51 | NUR ---
PATIENT'S O2 SATS=96% ON 2L/OXYMASK WITH A HR=82. PATIENT DENIES THE NEED FOR PAIN MEDICATION AND SAYS,"I'M A LITTLE TENDER, BUT I'LL LET YOU KNOW." PATIENT HAS NO CARE NEEDS AT THIS TIME AND CALL LIGHT IS IN REACH.
--- NOTE | 2021-02-15 05:05 | NUR ---
in to get vitals, i&os, quarles emptied, no further needs at this time
--- NOTE | 2021-02-15 05:39 | NUR ---
PATIENT CALLED ASKNING FOR PAIN MEDICATION FOR 6/10 ABD PAIN. 0.5MG IV DILAUDUD GIVEN SIVP AND PAIN IS ALREADY COMFORTABLE. PATIENT STOOD AT BEDSIDE AND MOVED UP TO REPOSITION HIMSELF IN THE BED. PATIENT DENIES NAUSEA. SURGICAL DRESSINGS REMAIN IN PLACE AND UNCHANGED FAR DRAINAGE. YAMILET DRAINS ALSO PUTTING OUT LESS DRAINAGE THAN WHEN EMPTIED THE FIRST PART OF THE SHIFT. VS STABLE. CALL LIGHT IN REACH AND ICE CHIPS REFILLED.LAB PRESENT IN THE ROOM TO DRAW AM LABS. SCD'S IN PLACE.
--- NOTE | 2021-02-15 07:05 | NUR ---
Report received from [place] BOSS. Pt resting in bed with eyes closed, respirations even and unlabored. NGT, CPOX in place. No needs identified at this time, will continue plan of care.
--- NOTE | 2021-02-15 07:48 | NUR ---
PT SLEEPING STILL. UPDATED WHITE BOARD. CALL LIGHT WITHIN REACH. WILL CHECK BACK IN LATER WITH PT.
--- NOTE | 2021-02-15 09:15 | NUR ---
In room to assess patient, administer medications. IVF infusing WNL. ABX infusing. PRN dilaudid given, pt states "had coughing fit which caused the abd pain". Sites visualized, dressings C/D/I and sites WNL. YAMILET drains emptied, minimal serousanguinous drainage noted. NGT clamped to administer meds. Pt's at bedside. Pt tolerating ice chips. States having some throat discomfort with NGT. IV ofirmev infusing.
--- NOTE | 2021-02-15 09:26 | NUR ---
PT FEELING TIRED. CALL LIGHT IN REACH, NO FURTHER NEEDS AT THIS TIME. IN ROOM.
--- NOTE | 2021-02-15 10:30 | NUR ---
NGT to LIWS. Pt tolerating well. Resting with eyes closed, 2L OM in place, CPOX reads 92%.
--- NOTE | 2021-02-15 13:50 | NUR ---
Pt up walking in hallway with this RN, SBA with FWW. Pt completes two laps around hallway and tolerates well. Back to room and sitting up in chair. NGT clamped after med administration. IVF infusing WNL. Coelho catheter WNL. pt states no pain or needs at this time.
--- NOTE | 2021-02-15 14:22 | NUR ---
PT STARTING OFF WITH [employer] TEA. WILL COME BACK FOR I&O'S SHORTLY. CALL LIGHT WITHIN REACH, NO FURTHER NEEDS. PT SITTING IN CHAIR WATCHING TV
--- NOTE | 2021-02-15 14:26 | NUR ---
PT HAD NO OUTPUT AND SAID THEY DIDNT WANT TO TRY YET. GERA SLADE NOTIFIED. CALL LIGHT WITHIN REACH, NO FURTHER NEEDS AT THIS TIME. PT SITTING IN CHAIR WATCHING TV. HOT TEA BROUGHT.
--- NOTE | 2021-02-15 14:29 | NUR ---
PT CALL LIGHT ON. IV PUMP ALARMING, IV ABX INFUSION COMPLETE. INFUSION STOPPED. PT DENIES ADDITIONAL REQUESTS OR COMPLAINTS. CALL LIGHT WITHIN REACH.
--- NOTE | 2021-02-15 14:59 | NUR ---
NGT removed WNL. Pt tolerates well. Coelho cath removed as well, tolerates well, WNL. IVF infusing WNL. Cepacol lozenge provided for throat irritation. Pt requests PRN dilaudid, order received from Dr De La Rosa.
--- NOTE | 2021-02-15 15:40 | NUR ---
PRN dilaudid 0.5mg administered for ABD pain. Pt states coughing d/t throat irritation causes stomach pain. Cepacol lozenges available. Pt sips tea, is very aware of advancing diet slowly and cautiously. IVF infusing WNL. Urinal placed at bedside. Pt expresses concern about having a bowel movement, bowel tones active, ABD soft, pt passing gas. Made plan to walk in hallway shortly.
--- NOTE | 2021-02-15 16:33 | NUR ---
PT ACCEPTED AND WAS GIVEN SUPPLIES FOR BB. PT REQUESTED THAT ASSIST THEM. CALL LIGHT WITHIN REACH, NO FURTHER NEEDS AT THIS TIME
--- NOTE | 2021-02-15 16:34 | NUR ---
Pt up walking in hallway with his . IVF infusing WNL. Pt states has been coughing frequently. Made plan for PRN pain medications.
--- NOTE | 2021-02-15 17:16 | NUR ---
PT LAYING IN BED TALKING ON PHONE. PT REFUSED DINNER. GERA SLADE NOTIFIED. CALL LIGHT IN REACH, NO FURTHER NEEDS AT THIS TIME.
--- NOTE | 2021-02-15 17:29 | EKG ---
[facility] [address] [facility] [place] [address] Signed Sinus rhythm with premature supraventricular complexes Left axis deviation Right bundle branch block Abnormal ECG No previous ECGs available Confirmed by MIKEL MCGOVERN DO ([id number]) on 02/15/2021 5:29:19 PM Electronically Signed By: MIKEL MCGOVERN DO 02/15/21 1729 PATIENT NAME: MERCEDESGERALD DAVID Electrocardiogram DATE OF : 61 PHYSICIAN: MIKEL MCGOVERN DO REPORT #: [id number] REPORT IS CONFIDENTIAL AND NOT TO BE RELEASED WITHOUT AUTHORIZATION
--- NOTE | 2021-02-15 17:30 | EKG ---
[facility] [address] [facility] [place] [address] Signed Normal sinus rhythm Left axis deviation Right bundle branch block Abnormal ECG When compared with ECG of 01-FEB-2020 10:48, premature supraventricular complexes are no longer present Confirmed by MIKEL MCGOVERN DO ([id number]) on 02/15/2021 5:30:10 PM Electronically Signed By: MIKEL MCGOVERN DO 02/15/21 1730 PATIENT NAME: GERALD MERCEDES Electrocardiogram DATE OF : 61 PHYSICIAN: MIKEL MCGOVERN DO REPORT #: [id number] REPORT IS CONFIDENTIAL AND NOT TO BE RELEASED WITHOUT AUTHORIZATION
--- NOTE | 2021-02-15 18:15 | NUR ---
Pt resting in bed watching tv. IVF infusing WNL. No needs identified at this time. Call light in reach.
--- NOTE | 2021-02-15 19:20 | NUR ---
SHIFT REPORT RECEIVED FROM ASHKANWATRISTA SLADE AT BEDSIDE. pt AWAKE AND RESTING IN BED. LAP SITES X2, MIDLINE DRESSING, AND YAMILET DRAINS X2 ALL WNL. SOME SHADOWING NOED TO MIDLINE AND YAMILET DRESSING, BUT REMAIN WITHIN OUTLINE. pt DENIES NEEDS OR CONCERNS. IV SITE WNL, IV FLUIDS AND IV ABX INFUSING WNL. ABD BINDER IN PLACE. CALL LIGHT IN REACH.
--- NOTE | 2021-02-15 21:20 | NUR ---
in to get vitals, urinal emptied, no further needs at this time
--- NOTE | 2021-02-15 21:50 | NUR ---
ASSESSMENT COMPLETE, SCHEDULED MEDS AND PRN PAIN MEDICATION GIVEN FOR 6/10 PAIN. FACIAL GRIMACING AND DISCOMFORT NOTED, pt APPEARS SOMEWAHT RESTLESS IN BED. IV SITE REMAINS WNL. NO CHANGE TO ABD DRESSINGS, NO NEW SHADOWING NOTED. pt DECLINES SCD'S, EDUCATION PROVIDED. URINAL AT BEDSIDE. CALL LIGHT IN REACH. VSS, pt ON RA, 2L OXYMASK IN REACH FOR BED, ARCHIBALD SLEEP APNEA.
--- NOTE | 2021-02-15 23:15 | NUR ---
ROUNDED ON pt, pt AWAKE AND RESTING IN BED. DENIES PAIN OR NEEDS AT THIS TIME. RR EVEN AND UNLABORED, CALL LIGHT IN REACH.
--- NOTE | 2021-02-16 00:25 | NUR ---
pt RESTING IN BED, EYES CLOSED. RR EVEN AND UNLABORED, NO DISTRESS NOTED. SPO2 LOW 90'S, HR 80'S. IV FLUIDS INFUSING ORDERED, SITE WNL. CALL LIGHT IN REACH.
--- NOTE | 2021-02-16 02:46 | NUR ---
ASSESSMENT COMPLETE, NO ACUTE CHANGES. NO NEW SHADOWING TO ABD/YAMILET DRESSINGS. pt DENIES PAIN, IV SITE WNL. IV ABX INFUSING DIRECTED. URINAL EMPTIED. pt STATES, "IT'S NICE GETTING A GOOD NIGHT'S REST". pt WAS AWAKE UPON ENTERING ROOM AND WAS USING IS IN BED. CALL LIGHT IN REACH.
--- NOTE | 2021-02-16 05:30 | NUR ---
pt AWAKE AND RESTING IN BED, EYES OPEN. RR EVEN AND UNLABORED. IV ABX AND IV FLUIDS INFUSING DIRECTED. NO NEEDS VERBALIZED. CALL LIGHT IN REACH.
--- NOTE | 2021-02-16 05:53 | NUR ---
IV PUMP ALARMING, ISSUE RESOLVED. IV SITE REMAINS WNL. NO FURTHER NEEDS, CALL LIGHT IN REACH.
--- NOTE | 2021-02-16 06:36 | NUR ---
PRN TYLENOL GIVEN, SEE EMAR. IV SITE WNL. pt UP SBA FROM BED TO CHAIR. PERSONAL BELONGINGS IN REACH AND CALL LIGHT IN REACH. ABD BINDER ADJUSTED.
--- NOTE | 2021-02-16 07:10 | NUR ---
Bedside report received from Sonia BOSS. Pt up in chair. IVF infusing WNL. On room air. Pt denies pain or needs at this time. Will continue plan of care.
--- NOTE | 2021-02-16 09:30 | NUR ---
Scheduled medications administered. Assessment complete. Pt back to bed after being up in chair. VSS, A+O. IVF infusing WNL. VQS into urinal. Tolerating small amount clear liquids, minimal ABD pain, mostly with movement/coughing. Demonstrates knowledge of bracing stomach with pillow when coughing. Reviewed plan of care, pt is agreeable and verbalizes understanding.
--- NOTE | 2021-02-16 10:40 | NUR ---
IV ABX infusing. Made plan with pt for PRN pain medication prior to walking in hallway. YAMILET drains emptied, pt educated about drain care.
--- NOTE | 2021-02-16 12:35 | NUR ---
Pt requests PRN pain medication prior to ambulation in hallways. Provided along with scheduled meds. Pt at bedside, assists changing gown.
--- NOTE | 2021-02-16 12:47 | NUR ---
Pt up walking in hallway with his . Tolerating well and states no needs.
--- NOTE | 2021-02-16 14:05 | NUR ---
PT RESTING IN BED WATCHING TV WITH FAMILY IN THE ROOM. PT IS ASKING FOR PAIN MEDICATION, GERA CREWS NOTIFIED. CALL LIGHT WITHIN REACH. NO FURTHER NEEDS AT THIS TIME.
--- NOTE | 2021-02-16 14:12 | NUR ---
PT CALL LIGHT ON. PT REPORTS 5/10 PAIN IN ABODOMEN, REQUESTS ADDITONAL PAIN MEDICATION. SEE MAR FOR MEDIATION GIVEN. IV FLUID BAG EMPTY, NEW BAG HUNG. PT DENIES ADDITIONAL REQUESTS OR COMPLAINTS. RESTING IN BED, CALL LIGHT WITHIN REACH. BED RAILS UP.
--- NOTE | 2021-02-16 14:30 | NUR ---
IV ABX complete. IVF infusing WNL. Pt states no further needs.
--- NOTE | 2021-02-16 17:00 | NUR ---
Scheduled medications administered, pt up to chair. He states no needs at this time, in good spirits.
--- NOTE | 2021-02-16 18:39 | NUR ---
PT AWAKE IN BED WATCHING TV. CALL LIGHT WITHIN REACH. NO FURTHER NEEDS AT THIS TIME.
--- NOTE | 2021-02-16 19:30 | NUR ---
SHIFT REPORT RECEIVED FROM DENNYS SLADE AT BEDSIDE. pt AWAKE AND RESTING IN BED, A/OX4. RR EVEN AND UNLABORED. IV SITE WNL, FLUIDS INFUSING WNL ALONG WITH IV ABX. pt DENIES NEEDS OR CONCERNS. CALL LIGHT IN REACH.
--- NOTE | 2021-02-16 20:35 | NUR ---
VERBAL REPORT GIVEN TO GERA العلي. GERA العلي TO ASSUME CARE OF pt AT THIS TIME.
--- NOTE | 2021-02-16 20:40 | NUR ---
PATIENT TAKING OVER THIS PATIENT FROM GERA YOO. REPORT RECEIVED. PATIENT RESTING QUIETLY IN BED WATCHING TV. PATIENT DENIES ANY CARE NEEDS AT THIS TIME. CALL LIGHT IS IN REACH.
--- NOTE | 2021-02-16 22:59 | NUR ---
THIS RN AND CASSIDY FITZGERALD CAME INTO PATIENT'S ROOM. PATIENT UP AT THE SIDE OF THE BED USSING THE URINAL AND IS NOW BACK IN BED. PATIENT HAVING 5/10 ABD PAIN AT SURGICAL SITES. 0.5MG SIVP DILAUDID GIVEN WITH PM MEDS FOR PAIN. PATIENT DENIES NAUSEA. ALL ABD DRESSINGS AND DRAIN DRESSINGS AR DRY AND INTACT, WITH ONLY OLD SHADOWING. PATIENT'S LUNGS ARE CLEAR AND BOWEL TONES ACTIVE. ABD BIDER READJUSTED, YAMILET'S DRAINED AND RECORDED. NEW ICE WATER GIVEN. INFORMED PATIENT HE WOULD BE NPO AFTER MIDNIGHT FOR BARIUM SWALLOW IN THE AM AND PATIENT VERBALIZED UNDERSTANDING. SCD'S IN PLACE. PATIENT IN HIGH FOWLERS POSITION IN BED WATCHING TV AND HAS NO OTHER CARE NEEDS AT THIS TIME. CALL LIGHT IS IN REACH.
--- NOTE | 2021-02-17 02:05 | NUR ---
PATIENT'S 2AM ANTIBIOTIC UP AND RUNNING. IV SITE REMAINS WNL. PATIENT DENIES PAIN AND ANY OTHER NEEDS AT THIS TIME. PATIENT IS RESTING QUIETLY UP IN THE BEDSIDE ARM CHAIR AND REMAINS NPO SINCE MIDNIGHT. PATIENT'S CALL LIGHT IS IN REACH.
--- NOTE | 2021-02-17 05:15 | NUR ---
ANTIBIOTIC COMPLETE AND IV FLUSHED WITH 10MLS NS. PATIENT HAVING 2/10 PAIN AT THIS TIME AND DENIES THE NEED FOR PAIN MEDS. PATIENT NPO FOR BARIUM SWALLOW THIS AM. PATIENT VOIDING QUANTITY SUFFICIENT. ASSESSMENT REMAINS UNCHANGED. PATIENT GOING TO SLEEP AWHILE LONGER IN THE BED SIDE ARM CHAIR. YAMILET'S EMPTIED AND STRIPPED. PATIENT HAS NO OTHER CARE NEEDS AT THIS TIME AND CALL LIGT IS IN REACH.
--- NOTE | 2021-02-17 06:41 | NUR ---
PATIENT CALLED FOR PAIN MEDICATION FOR ABD PAIN 07/01 AND WAS GIVEN 0.5MG SIVP DILAUDID. PATIENT ALREADY FEELING BETTER AND HAD NO OTHER CARE NEEDS AT THIS TIME. CALL LIGHT IN REACH.
--- NOTE | 2021-02-17 07:55 | NUR ---
Upper GI study order placed for this morning per Dr. De La Rosa's order. Charge nurse Bertha spoke with DI department and they report there is no radiologist on today so they're unable to do the study today. DI department also states their department is completely booke out for tomorrow as well with other planned procedures. Dr. De La Rosa updated and he reports the study needs to happen tomorrow. I will reach back out to the DI department regarding this need. Ok to place patient back to clear liquids today per Dr. De La Rosa.
--- NOTE | 2021-02-17 09:33 | NUR ---
Offirmev 1000mg IV admin for reports of 6/10 insicional pain.
--- NOTE | 2021-02-17 10:51 | NUR ---
Patient reports his pain is tolerable at this time, denies nausea. J Luis drains to L/R abdomen are intact, patent with sarosang drainage. J Luis drains left to suction. Abdominal dressings are all CDI, unchanged. Abdominal binder in place, pt tolerating well. scd's intact, pt up ambulating well. No current needs.
--- NOTE | 2021-02-17 10:55 | NUR ---
PT AWAKE IN BED AND IS READY FOR A SHOWER ONCE SALINE LOCKED, BATHROOM IS READY. NO FURTHER NEEDS AT THIS TIME.
--- NOTE | 2021-02-17 12:32 | NUR ---
Admin 0.5mg dilaudid IV admin for reports of 5/10 abd pain.
--- NOTE | 2021-02-17 12:44 | NUR ---
Patient ambulated in the hallway independently, tolerated well. Patient NPO for upper GI study today at 3pm. Bed bath done, bed linens changed. Patient reports he feels like he is improving, no nausea today. Patient sitting up in chair, denies needs.
--- NOTE | 2021-02-17 14:00 | NUR ---
Spoke with pt. He is doing well. Awaiting Barium swallow. Per Dr. De La Rosa pt may be able to dc in 1-3 days if all goes well.
--- NOTE | 2021-02-17 16:53 | NUR ---
Patient in chair watching tv, no distress. IV infusing, patent site. Patient reports pain is tolerable. Patient ambulated in hallway independently, tolerated vert well. No current needs. Personal supplies and call light within reach.
--- NOTE | 2021-02-17 17:51 | NUR ---
PT AWAKE IN CHAIR CHATTING ON THE PHONE WITH FAMILY. CALL LIGHT WITHIN REACH. NO FURTHER NEEDS AT THIS TIME.
--- NOTE | 2021-02-17 18:29 | NUR ---
Dilaudid 0.5mg IVP admin for reports of 6/10 incisional pain.
--- NOTE | 2021-02-17 18:33 | NUR ---
Patient doing well this evening, no distress. Patient continues to tolerate his diet well, full liquids thus far. Will encourage patient to advance to a regular diet at this time, pt receptive. J Luis drains remain intact, sarosang drainage noted. IV site patent. No current needs.
--- NOTE | 2021-02-17 19:29 | NUR ---
BEDSIDE REPORT RECEIVED FROM GERA WALLACE. pt RESTING IN BED, DENIES PAIN AT THIS TIME STATES JUST GOT MEDICATION. IVF AND IV ANTIBIOTIC INFUSING WNL. CALL LIGHT IN REACH. NO REQUESTS AT THIS TIME.
--- NOTE | 2021-02-17 21:11 | NUR ---
pt RESTING IN BED SLEEPING, AWAKENS TO VOICE. ASSESSMENT COMPLETE. pt RATES PAIN 2/10 IN ABDOMEN AT INCISION SITE, DENIES NEED FOR PAIN, STATES "I GUESS I WOULD TAKE THE TYLENOL A LITTLE LATER". IV SITE FLUSHED, SCHEDULED MEDICATIONS ADMINISTERED WNL. IV ANTIBIOTIC INFUSING ORDERED. YAMILET DRAIN ON RIGHT SIDE WITH SMALL AMT SEROSANGUINOUS DRAINAGE. YAMILET ON LEFT SIDE OF ABDOMEN WITH SEROUS DRAINAGE, SMALL AMT. DRAINS STRIPPED. pt DENIES TOILETING NEEDS AT THIS TIME. CALL LIGHT AND PERSONAL SUPPLIES IN REACH.
--- NOTE | 2021-02-17 22:09 | NUR ---
IV ANTIBIOTIC COMPLETE. pt RESTING IN BED, CONTINUES TO RATE PAIN 2/10 AT INCISION. PRN OFIRMEV ADMINISTERED AT THIS TIME. CALL LIGHT IN REACH. LIGHTS OFF IN ROOM.
--- NOTE | 2021-02-17 23:47 | NUR ---
pt RESTING IN BED AWAKE WATCHING TV. 2L OXYGEN BY OXYMASK IN PLACE. pt DENIES NEEDS. CALL LIGHT IN REACH.
--- NOTE | 2021-02-18 02:34 | NUR ---
pt AWAKENS TO VOICE FOR IV ANTIBIOTIC ADMINISTRATION. 2L OXYGEN BY OXYMASK IN PLACE. pt RATES PAIN 5/10 AT INCISION, REQUESTING PRN PAIN MEDICATION. PRN DILAUDID IV ADMINISTERED. IV SITE FLUSHED WNL. IV ANTIBIOTIC INFUSING ORDERED. YAMILET DRAINS WITH SMALL AMT FLUID. URINAL EMPTIED. CALL LIGHT IN REACH. NO ADDITIONAL REQUESTS AT THIS TIME.
--- NOTE | 2021-02-18 06:09 | NUR ---
pt SLEEPING, AWAKENS TO VOICE. VSS. ASSESSMENT COMPLETE. pt DENIES PAIN. DRESSINGS INTACT, SHADOWING UNCHANGED FROM START OF SHIFT. YAMILET DRAINS EMPTIED, 45 MLS RIGHT YAMILET SEROSANGUINOUS DRAINAGE AND 28 MLS LEFT YAMILET DRAIN LIGTH SEROSANGUINOUS COLOR. ABD SOFT, BOWEL TONES ACTIVE X 4. ABD BINDER IN PLACE. IVF INFUSING WNL. ICE WATER REFILLED. CALL LIGHT IN REACH. 2L OXYGEN BY OXYMASK REAPPLIED BY pt RN AND INSPECTOR REPAIRER SANDSTONE LEAVE ROOM. BREAKFAST ORDER PLACED FOR CREAM OF WHEAT.
--- NOTE | 2021-02-18 06:14 | NUR ---
pt RESTED WELL THIS SHIFT, 2L OXYGEN BY OXYMASK WITH SLEEP. IVF INFUSING WNL THROUGHOUT SHIFT. MIDLINE INCISION DRESSING INTACT, DRAINAGE UNCHANGED. YAMILET DRAIN ON RIGHT SIDE WITH 45 MLS SEROSANGUINOUS DRAINGE THIS SHIFT, YAMILET ON LEFT SIDE WITH 28 MLS LIGHT SEROSANGUINOUS DRAINAGE THIS SHIFT. SMALL SOFT BM. VOIDING QS. PRN OFIRMEV AND DILAUDID X 1 THIS SHIFT FOR PAIN CONTROL.
--- NOTE | 2021-02-18 07:30 | NUR ---
Report received from Pricilla BOSS. Pt resting in bed with eyes closed, 2L OM in place. Even and unlabored respirations. No needs identified at this time. Will continue plan of care.
--- NOTE | 2021-02-18 09:00 | NUR ---
Scheduled medications administered and assessment complete. Pt states slight acid reflux feeling in ABD, scheduled pepcid/protonix given. IVF infusing WNL. Pt tolerating full liquid diet at this time. Able to fully control body position and ambulate by self, SBA. ABD binder in place over C/D/I midline dressing and RLQ/LLQ YAMILET drains putting out serous drainage with few clots noted, tubing stripped WNL. Pt denies pain or needs. Call light in reach
--- NOTE | 2021-02-18 10:00 | NUR ---
Scheduled ABX infusing WNL. Pt would like to walk in hallway. No other needs, at bedside.
--- NOTE | 2021-02-18 10:06 | NUR ---
PATIENT IN BED AT THIS TIME, VISITOR IN ROOM. RN IN ROOM AND PATIENT ASKED TO AMBULATE IN HALLWAY. VITALS AND I&O'S CHARTED. CALL LIGHT IN REACH. NO FURTHER NEEDS AT THIS TIME.
--- NOTE | 2021-02-18 11:19 | NUR ---
IV pump alarming, new bag IVF hung with new tubing. 0.5mg PRN dilaudid provided for 5/10 ABD pain, pt relates it to "acid feeling". Otherwise tolerating clears and full liquids. Pt c/o bilateral eye discomfort, "itchy and uncomfortable" warm cloth compress provided and pt states it is helpful. Pt requests education regarding diet once discharged.
--- NOTE | 2021-02-18 13:00 | NUR ---
Spoke with Keith. He is doing quite well and is in good humor. Has spoken with Dr. De La Rosa and aware he may dc sometime in the next 1-2 days. He drains are out. He does state he is not in a baxter to leave as he is not interested in returning. Plans on dc to home with . Walking frequently in the [place].
--- NOTE | 2021-02-18 13:30 | NUR ---
IV ABX dose complete. Pt saline locked at this time per order. Pt would like to take a shower, made plan. No pain or needs at this time. Assessment complete.
--- NOTE | 2021-02-18 13:40 | NUR ---
PT ALERT, ORIENTED AND PLEASANT. PT SEEMS TO BE TAKING HOSPITALIZATION ALL IN STRIDE-DEALING APPROPRIATELY.PT SHARED ABOUT FAMILY ISSUES,ALSO REQUESET INFO REGARDING CHURCHES IN AREA. HAD PRAYER WITH PT, WOULD LIKE VISIT FROM . WILL FOLLOW UP WITH THIS REQUEST
--- NOTE | 2021-02-18 14:34 | NUR ---
PT AMBULATES AND TOOK A SHOWER INDEPENDENTLY. LINEN CHANGED. PT NOW BACK IN THE CHAIR WITH CALL LIGHT IN REACH.
--- NOTE | 2021-02-18 14:45 | PATH ---
[facility] [address], [place] [address] Signed SPECIMEN(S): A HYDROPIC GALLBLADDER WITH STONE SPECIMEN SOURCE: A. HYDROPIC GALLBLADDER WITH STONE CLINICAL HISTORY: Perforated anastomotic ulcer, cholecystitis, peritonitis. FINAL PATHOLOGIC DIAGNOSIS: Gallbladder, cholecystectomy: - Cholelithiasis and chronic cholecystitis. DDF:cml:C2NR MICROSCOPIC EXAMINATION: Histologic sections of all submitted blocks are examined by light microscopy. These findings, together with the gross examination, support the pathologic diagnosis. GROSS DESCRIPTION: The specimen, labeled "RT, A," and designated on the requisition "hydropic gallbladder with stone," is received in formalin and consists of Specimen: Disrupted/previously opened gallbladder. Dimensions: 6.5 x 4.8 x 3.2 cm. Serosa: Green-roberts and smooth. Cystic Duct: Unobstructed, margin inked black and shaved. Calculi: One green-brown calculus (2.0 cm in greatest dimension). Mucosa: Green and velvety. Wall thickness: 0.3 cm. Lymph node: No pericystic lymph nodes are grossly identified. Additional: None. Benefits Administrator sections are submitted in cassette (A1). AC (under the direct supervision of a pathologist) The Gross Description was prepared using a voice recognition system. The report was reviewed for accuracy; however, sound-alike word errors, addition and/or deletions may occur. If there is any question about this report, please contact Client Services. PERFORMING LABORATORY: The technical component was performed by [facility], [address] [place] [id number] (Trailer Mechanic: Maritza Wilson MD; CLIA# [id number]).Professional interpretation was performed by PATIENT NAME: GERALD MERCEDES PATHOLOGY DATE OF : 61 REPORT #: [id number] PHYSICIAN: [facility] PCP: CEDRICK ESCOBAR PA-C REPORT IS CONFIDENTIAL AND NOT TO BE RELEASED WITHOUT AUTHORIZATION [facility] [address] [place], [place] [address] Signed [facility], [facility], [address] [facility] [address], [place] [address] (CLIA# [id number]). Diagnostician: Ruben Kelly DO Pathologist Electronically Signed 02/18/2021 Copies: ~ PATIENT NAME: GERALD MERCEDES PATHOLOGY DATE OF : 61 REPORT #: [id number] PHYSICIAN: [facility] PATHOLOG[facility] PCP: CEDRICK ESCOBAR PA-C REPORT IS CONFIDENTIAL AND NOT TO BE RELEASED WITHOUT AUTHORIZATION
--- NOTE | 2021-02-18 18:08 | NUR ---
PT AWAKE IN ROOM AND INDEPENDENTLY MOVING AROUND THE ROOM. NO FURTHER NEEDS AT THIS TIME
--- NOTE | 2021-02-18 19:30 | NUR ---
REPORT RECEIVED FROM GERA SLADE. pt RESTING IN BED AWAKE WATCHING TV. DENIES PAIN. NO REQUESTS AT THIS TIME. CALL LIGHT IN REACH.
--- NOTE | 2021-02-18 21:17 | NUR ---
pt RESTING IN CHAIR. AMBULATORY TO HOSPITAL BED INDEPENDENTLY. pt REPORTS SMALL BM, URINE EMPTIED FROM HAT. ASSESSMENT COMPLETE. pt RATES PAIN 3-4/10 "IT FEELS DIFFERENT, DEEPER". INCISION CDI WITH STERI STRIPS, LAP SITES CDI WTIH STERI STRIPS. BANDAIDS WITH SMALL AMT SHADOWING. ABD BINDER IN PLACE. CARAFATE SLURRY AND SCHEDULED MEDICATIONS ADMINISTERED. CALL LIGHT IN REACH. ICE WATER REFILLED. pt DENIES NEED FOR PRN TYLENOL, REQUESTING TO WAIT FOR PO PERCOCET AVAILABLE. INSTRUCTED pt TO USE CALL LIGHT FOR NEEDS, IF PAIN INCREASES.
--- NOTE | 2021-02-18 21:40 | NUR ---
PRN PAIN MEDICATION ADMINISTERED AT THIS TIME, pt C/O ABDOMINAL PAIN 4/10 IN ABDOMEN. CRACKERS AND JELLO IN REACH TO TAKE WITH PO MEDICATIONS. CALL LIGHT IN REACH. NO ADDITIONAL NEEDS.
--- NOTE | 2021-02-18 23:06 | NUR ---
RT GONSALEZ IN ROOM ANSWERING QUESTIONS FOR pt REGARDING CPAPS AND DIFFERENT MASK STYLES NOW AVAILABLE. 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
--- NOTE | 2021-02-19 00:07 | NUR ---
CHECKED ON pt. RESTING IN BED AWAKE WATCHING TV. DENIES PAIN. DENIES NEEDS AT THIS TIME. STATES "I'M KIND OF ITCHY". NO REQUESTS, INSTRUCTED NOT TO SCRATCH/TOUCH INCISIONS. pt'S CALLING pt AT THIS TIME. NO REQUESTS.
--- NOTE | 2021-02-19 02:48 | NUR ---
CHECKED ON pt. RESTING IN BED WITH EYES CLOSED, 2L OXYGEN BY OXYMASK IN PLACE. BREATHING UNLABORED. LIGHTS OFF IN ROOM.
--- NOTE | 2021-02-19 04:35 | NUR ---
CHECKED ON pt. RESTING IN BED ON BACK, SNORING. 2L OXYGEN BY OXYMASK ON. LIGHTS OFF IN ROOM.
--- NOTE | 2021-02-19 06:30 | NUR ---
pt AWAKEN RESTING IN BED. UP TO RESTROOM FOR VOID INDEPENDENTLY. pt C/O 4/10 ABDOMINAL PAIN. ASSESSMENT COMPLETE. INCISIONS CDI WITH STERI STRIPS, SHADOWING UNCHANGED ON BANDAIDS. ABD SOFT, BOWEL TONES ACTIVE X 4. PRN PAIN MEDICATION ADMINISTERED REQUESTED. CARAFATE SLURRY ADMINISTERED. VSS. CALL LIGHT IN REACH.
--- NOTE | 2021-02-19 08:01 | NUR ---
Patient awake up walking in room. Patient reports his pain is tolerable this morning. Breakfast ordered. No current needs. Personal supplies and call light within reach.
--- NOTE | 2021-02-19 10:15 | NUR ---
PATIENT IS RESTING IN BED. HE STATES HE DOES NOT NEED TO GO TO THE BATHROOM AT THIS TIME. I WILL KEEP CHECKING BACK. HE DOES NOT NEED ANYTHING AT THIS TIME. CALL LIGHT IN REACH.
--- NOTE | 2021-02-19 10:50 | NUR ---
Spoke with pt and his . Both deny needs for dc. Pt will dc to home today.
[2021-02-19] MEDS ORDERED: ACETAMINOPHEN500 MG PO (11:45)
[2021-02-19] MEDS ORDERED: OXYCODON-ACETA1 EAC2 PO (11:45)
[2021-02-19] MEDS ORDERED: SUCRALFATE1 GM PO (11:46)
[2021-02-19] MEDS ORDERED: PANTOPRAZOLE SO40 MG PO (11:47)
--- NOTE | 2021-02-19 12:15 | NUR ---
Two tabs percocet 7.5/325mg po admin for reports of 5/10 abd pain.
== END 2021-02-19 12:20 | disposition home or self-care (01) | DRG 326 ==
LOC: ED 08:13 → MS 08:15 → ED 08:15 → MS 17:21
PROVIDERS: ADMIT Surgery; ATTEND Surgery
PROC: 0FJ44ZZ Inspection of Gallbladder, Percutaneous Endoscopic Approach (ICD-10-PCS; 2021-02-13)
PROC: 0DU607Z Supplement Stomach with Autologous Tissue Substitute, Open Approach (ICD-10-PCS; principal; 2021-02-13 11:14)
PROC: 0FT40ZZ Resection of Gallbladder, Open Approach (ICD-10-PCS; 2021-02-13 11:14)
DX: K25.6 Chronic or unspecified gastric ulcer with both hemorrhage and perforation (principal); K65.0 Generalized (acute) peritonitis; Z68.43 Body mass index [BMI] 50.0-59.9, adult; K82.1 Hydrops of gallbladder; K80.12 Calculus of gallbladder with acute and chronic cholecystitis without obstruction; Z20.822 Contact with and (suspected) exposure to COVID-19; E66.01 Morbid (severe) obesity due to excess calories; F32.A Depression, unspecified; Z98.84 Bariatric surgery status; Z87.891 Personal history of nicotine dependence; Z79.899 Other long term (current) drug therapy
CPT/HCPCS: 00790; 64488; 71045; 74246; 76705; 76942; 80048; 80053; 80076; 83690; 83735; 84484; 85025; 87070; 87205; 93005; 93010; 94760; 94762; 96374; 96375; 96376; 99285-25; C9113; C9803; J0131; J0330; J0690; J1100; J1170; J1644; J1885; J2001; J2185; J2270; J2405; J2704; J2795; J3475; J7121; U0003

== ENCOUNTER 2021-05-13 17:52 | Emergency (ER) | payer BC ==
[~2021-05-13] VITALS: Ht 185.4 cm; Wt 184.6 kg
[~2021-05-13 17:52] MED LIST changes: +ACETAMINOPHEN500 MG PO; +BUSPIRONE HCL5 MG PO; +GABAPENTIN300 MG PO; +OXYCODON-ACETA1 EAC2 PO; +PANTOPRAZOLE SO40 MG PO; +SUCRALFATE1 GM PO; +TESTOSTERO200 MG/1 M IM
--- OUTSIDE RECORDS SUMMARY | 2021-05-13 17:54 | XMS ---
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 E.D. VISIT COUNT (12 MO.) 2 [facility] [place] TOTAL 2 NOTE: Visits indicate total known visits. ED/UCC VISIT TRACKING (12 MO.) 05/13/2021 17:53 [facility] TYPE: Emergency COMPLAINT: - LT LEG PAIN 02/13/2021 08:14 [facility] TYPE: Emergency COMPLAINT: - POSS HEART ATTACK INPATIENT VISIT TRACKING (12 MO.) 02/13/2021 17:21 [facility] TYPE: Medical Surgical COMPLAINT: - CHOLECYSTITIS DIAGNOSES: - Generalized (acute) peritonitis - Morbid (severe) obesity due to excess calories - Acute cholecystitis - Morbid (severe) obesity due to excess calories - Calculus of gallbladder with acute and chronic cholecystitis without obstruction - Body mass index [BMI] 50.0-59.9, adult - Calculus of gallbladder with acute and chronic cholecystitis without obstruction - DEPRESSION, UNSPECIFIED - Hydrops of gallbladder - Generalized (acute) peritonitis - Other prison (current) drug therapy - Personal history of nicotine dependence - Bariatric surgery status - Chronic or unspecified gastric ulcer with both hemorrhage and perforation - Personal history of nicotine dependence - Body mass index [BMI] 50.0-59.9, adult - Chronic or unspecified gastric ulcer with both hemorrhage and perforation - Hydrops of gallbladder - DEPRESSION, UNSPECIFIED - Bariatric surgery status - 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
== END 2021-05-13 22:34 | disposition home or self-care (01) ==
LOC: ED 17:52
DX: M79.662 Pain in left lower leg (principal); R58 Hemorrhage, not elsewhere classified; M79.89 Other specified soft tissue disorders; E66.9 Obesity, unspecified; Z87.891 Personal history of nicotine dependence; Z79.899 Other long term (current) drug therapy
CPT/HCPCS: 93971; 99283-25; A9270